=== PATIENT | female | born 1980 | race Caucasian/White ===

== ENCOUNTER → 2023-11-23 07:45 | Outpatient (REF) | payer BC, SELFPAY | LOC: HWRAD 07:45 | PROVIDERS: ATTENDING PHYSICIAN Specialist; FAMILY PHYSICIAN Nurse Practitioner Adult Health | DX: R19.5 Other fecal abnormalities (principal) | CPT/HCPCS: 76700 ==

== ENCOUNTER → 2024-01-06 07:24 | Outpatient (REF) | payer BC, SELFPAY | LOC: RAD 07:24 | PROVIDERS: ATTENDING PHYSICIAN Surgery; FAMILY PHYSICIAN Nurse Practitioner Adult Health | DX: D37.3 Neoplasm of uncertain behavior of appendix (principal) | CPT/HCPCS: 74177; Q9967 ==

== ENCOUNTER → 2024-02-03 07:39 | Outpatient (REF) | payer BC, SELFPAY | LOC: WDC 07:39 | PROVIDERS: ATTENDING PHYSICIAN Surgery; FAMILY PHYSICIAN Nurse Practitioner Adult Health | DX: R92.8 Other abnormal and inconclusive findings on diagnostic imaging of breast (principal) | CPT/HCPCS: 76642 ==

== ENCOUNTER → 2024-05-02 08:00 | Outpatient (REF) | payer BC, SELFPAY | LOC: WDC 08:00 | PROVIDERS: ATTENDING PHYSICIAN Obstetrics & Gynecology Gynecology; FAMILY PHYSICIAN Nurse Practitioner Adult Health | DX: Z12.31 Encounter for screening mammogram for malignant neoplasm of breast (principal) | CPT/HCPCS: 77063; 77067 ==

== ENCOUNTER → 2024-09-21 09:37 | Outpatient (REF) | payer BC, SELFPAY | LOC: WDC 09:37 | PROVIDERS: ATTENDING PHYSICIAN Nurse Practitioner Adult Health; FAMILY PHYSICIAN Nurse Practitioner Adult Health | DX: N63.10 Unspecified lump in the right breast, unspecified quadrant (principal); N63.11 Unspecified lump in the right breast, upper outer quadrant | CPT/HCPCS: 76642 ==

== ENCOUNTER → 2024-09-26 08:50 | Outpatient (REF) | payer BC, SELFPAY ==
--- NOTE | 2024-09-27 08:36 | OID.BR.INTR ---
[facility] Breast Navigator - Initial
- -
Did not meet patient at time of biopsy. Will follow up per protocol.
== END ==
LOC: WDC 08:50
PROVIDERS: ATTENDING PHYSICIAN Nurse Practitioner Adult Health; FAMILY PHYSICIAN Nurse Practitioner Adult Health
DX: N63.11 Unspecified lump in the right breast, upper outer quadrant (principal); R92.8 Other abnormal and inconclusive findings on diagnostic imaging of breast
CPT/HCPCS: 88305; 19083; A4648

== ENCOUNTER 2024-10-14 06:21 | Day surgery (SDC) | payer BC, SELFPAY | END 2024-10-14 15:04 | disposition home or self-care (01) | LOC: GI 06:21 | PROVIDERS: ATTENDING PHYSICIAN Specialist | DX: K51.511 Left sided colitis with rectal bleeding (principal); K62.5 Hemorrhage of anus and rectum; K62.89 Other specified diseases of anus and rectum | CPT/HCPCS: 45380; 88305 ==

== ENCOUNTER → 2025-01-02 08:52 | Outpatient (REF) | payer BC, SELFPAY | LOC: WDC 08:52 | PROVIDERS: ATTENDING PHYSICIAN Nurse Practitioner Adult Health; FAMILY PHYSICIAN Nurse Practitioner Adult Health | DX: R92.2 Inconclusive mammogram (principal) | CPT/HCPCS: 76641 ==

== ENCOUNTER → 2025-01-25 07:44 | Outpatient (REF) | payer BC, SELFPAY | LOC: HWRAD 07:44 | PROVIDERS: ATTENDING PHYSICIAN Specialist; FAMILY PHYSICIAN Nurse Practitioner Adult Health | DX: K82.4 Cholesterolosis of gallbladder (principal); D17.71 Benign lipomatous neoplasm of kidney | CPT/HCPCS: 76700 ==

== ENCOUNTER → 2025-02-02 08:24 | Outpatient (REF) | payer BC, SELFPAY ==
[2025-02-02 09:20] LABS: Hematocrit 36.8 % (37.0-47.0); Hemoglobin 11.5 g/dL (12.0-16.0)
== END ==
LOC: REG 08:24
PROVIDERS: ATTENDING PHYSICIAN Surgery; FAMILY PHYSICIAN Nurse Practitioner Adult Health
DX: Z01.812 Encounter for preprocedural laboratory examination (principal); D64.9 Anemia, unspecified
CPT/HCPCS: 36415; 85014; 85018

== ENCOUNTER 2025-02-07 06:18 | Day surgery (SDC) | payer BC, SELFPAY ==
[2025-01-20 08:59] LABS: Hematocrit 33.1 % (37.0-47.0); Hemoglobin 10.5 g/dL (12.0-16.0); Mean Corp Hgb Conc. 31.7 g/dL (33.0-37.0); Mean Corpuscular Volume 83.8 fL (81.0-99.0); Platelet Count 326 10^3/uL (130-400); Red Cell Dist. Width 14.0 % (11.5-14.5)
[2025-01-20 09:22] LABS: ALT (SGPT) 11 U/L (0-35); AST (SGOT) 14 U/L (14-36); Albumin 3.8 g/dl (3.5-5.0); Alkaline Phosphatase 47 U/L (38-126); Blood Urea Nitrogen 12 mg/dl (7-17); Calcium 8.9 mg/dl (8.4-10.2); Carbon Dioxide 30 mmol/L (22-30); Chloride 106 mmol/L (98-107); Glucose 80 mg/dl (70-99); Potassium 3.9 mmol/L (3.5-5.1); Sodium 139 mmol/L (135-145); Total Protein 6.6 g/dl (6.3-8.2); eGFR > 60.00
[2025-01-20 09:29] LABS: Prealbumin (Transthyretin) 15.4 mg/dl (17.6-36.0)
[2025-01-20 09:42] LABS: Vitamin D, 25-OH*** 21.9 ng/mL (30-80)
[2025-01-20 13:53] VITALS: BMI 21.9
[2025-02-07 12:50] VITALS: BP 123/87; BMI 21.9
[2025-02-07] MEDS: TYLENOL 1000 MG PO (13:10)
[2025-02-07] MEDS: NORMOSOL-R/PLASMALYTE-A 1000 IV (13:10)
[2025-02-07 13:35] VITALS: BMI 23.1
[2025-02-07 16:31] VITALS: BP 104/71
--- NOTE | 2025-02-07 16:38 | W.IMMPOSTOP ---
Surgical Immed Post Op Note
-
Primary Surgeon: Carolina
Assisting Surgeon: None
Pre-op Diagnosis: Fibroadenomatoid lesion right breast
Post-op Diagnosis: Same
Procedure Performed: Right lumpectomy
Anesthesia Type: TIVA
Specimen / Cultures: Right lumpectomy and margins
Estimated Blood Loss: 4cc
Complications: None
Operative Findings: None
--- NOTE | 2025-02-07 16:39 | OR.RPT ---
Operative Report
Operative Report
Operative date: 02/07/2025
Surgeon: Carolina
Preoperative diagnosis: Right fibroadenomatoid lesion rule out phyllodes tumor
Postoperative diagnosis: Same
Procedure: Right lumpectomy
The patient is a 44-year-old female with multiple palpable breast masses. One in the right breast at the 10 o'clock position had been biopsied and shown to be consistent with the fibroadenomatoid lesion however it had grown and resection was
recommended to rule out a phyllodes tumor. She presented to same-day surgical services where she verified site and procedure. She was prepped and DVT and antibiotic prophylaxis were provided.
She was taken to the operating room and in the supine position the right breast was prepped and draped in the usual sterile fashion. An appropriate timeout was performed by all team members. All tissues were anesthetized with 1% lidocaine plain
and a curvilinear incision was made sharply with the blade overlying the palpable mass. Dissection was carried down to the mass and a wide resection lumpectomy was performed using the cautery. 2-0 silk traction stitch had been passed through the
mass. Time out of body was noted and the specimen was oriented for the pathologist and sent for permanent analysis. Additional margins were harvested from the posterior, medial, superior, anterior, inferior, and lateral margins. These were
oriented as well. In order to obtain wider superior medial margin another small palpable mass was excised and oriented and sent under separate cover.
Hemostasis was maintained with the cautery or 3-0 silk tie. All tissues were anesthetized with 0.5% Marcaine plain. The wound was closed using simple interrupted 3-0 plain on subcu on deep tissue and simple interrupted 4-0 Vicryl on the
subcutaneous tissue. Skin was closed with a running subcuticular 4-0 Monocryl. Surgical glue and sterile compressive dressings were applied. All sponge needle and instrument counts were correct and the patient was transferred back to same-day
surgical services to recover
()
[2025-02-07 16:45] VITALS: BP 113/73
[2025-02-07 17:00] VITALS: BP 115/81
[2025-02-07 17:15] VITALS: BP 118/81
== END 2025-02-07 17:30 | disposition home or self-care (01) ==
LOC: SDS 06:18
PROVIDERS: ATTENDING PHYSICIAN Surgery; FAMILY PHYSICIAN Nurse Practitioner Adult Health
DX: D24.1 Benign neoplasm of right breast (principal); N63.0 Unspecified lump in unspecified breast
CPT/HCPCS: 19301; 36415; 80053; 82306; 84134; 85027; 88305; 88307

== ENCOUNTER → 2025-05-04 07:40 | Outpatient (REF) | payer BC, SELFPAY | LOC: WDC 07:40 | PROVIDERS: ATTENDING PHYSICIAN Obstetrics & Gynecology Gynecology; FAMILY PHYSICIAN Nurse Practitioner Adult Health | DX: Z12.31 Encounter for screening mammogram for malignant neoplasm of breast (principal) | CPT/HCPCS: 77063; 77067 ==